=== PATIENT | female | born 1955 | race Caucasian/White ===

== ENCOUNTER → 2017-01-08 | Outpatient (CLI) | payer BC ==
[2017-01-08 13:16] LABS: BASO % 1.1 %; BASO ABS # 0.07 K/uL (0-0.2); COMPLETE YES; EOS % 6.2 %; HEMATOCRIT 40.5 % (37-47); LYMPH % 23.8 %; LYMPH ABS # 1.49 K/uL (1.2-3.4); MEAN CELL VOLUME 87.5 fL (80-100); MEAN CORPUSCULAR HEMOGLOBIN 29.4 pg (25-34); MEAN CORPUSCULAR HGB CONC 33.6 g/dl (32-36); MEAN PLATELET VOLUME 10.9 fL (7.4-10.4); MONO % 8.9 %; PLATELET COUNT 209 K/uL (130-400); RED BLOOD COUNT 4.63 M/uL (4.2-5.4); WHITE BLOOD COUNT 6.27 K/uL (4.8-10.8)
[2017-01-08 13:44] LABS: ALB/GLOB RATIO 1.1 (0.9-2); ALT/SGPT 61 U/L (12-78); AST/SGOT 28 U/L (15-37); BLOOD UREA NITROGEN 15 mg/dl (7-18); CALCIUM 8.8 mg/dl (8.5-10.1); CARBON DIOXIDE 29 mmol/L (21-32); CHLORIDE 107 mmol/L (98-107); CHOLESTEROL 122 mg/dl (0-200); CREATININE 0.76 mg/dl (0.60-1.20); GLUCOSE 93 mg/dl (70-99); POTASSIUM 3.7 mmol/L (3.5-5.1); SODIUM 143 mmol/L (136-145); TRIGLYCERIDES 67 mg/dl (0-150); VERY LOW DENSITY LIPOPROT CALC 13 mg/dl
[2017-01-08 13:52] LABS: ALKALINE PHOSPHATASE 93 U/L (45-117); CHOLESTEROL/HDL RATIO 3.1; HDL CHOLESTEROL 39 mg/dl; LDL CHOLESTEROL CALCULATED 70 mg/dl
== END | disposition home or self-care (01) ==
LOC: C.LABMFLN 08:15
PROVIDERS: ATTEND Physician Assistant
DX: Z00.00 Encounter for general adult medical examination without abnormal findings (principal); E78.5 Hyperlipidemia, unspecified

== ENCOUNTER → 2017-02-19 | Outpatient (CLI) | payer BC | END | disposition home or self-care (01) | LOC: C.LABMFLN 18:02 | PROVIDERS: ATTEND Physician Assistant | DX: E03.9 Hypothyroidism, unspecified (principal) ==

== ENCOUNTER → 2017-04-02 | Outpatient (CLI) | payer BC | END | disposition home or self-care (01) | LOC: C.LABMFLN 08:18 | PROVIDERS: ATTEND Physician Assistant | DX: E03.9 Hypothyroidism, unspecified (principal) ==

== ENCOUNTER → 2018-01-07 | Outpatient (CLI) | payer BC ==
[2018-01-07 17:50] LABS: BASO % 1.3 %; BASO ABS # 0.08 K/uL (0-0.2); EOS % 5.7 %; EOS ABS # 0.34 K/uL (0-0.5); HEMATOCRIT 41.5 % (37-47); HEMOGLOBIN 13.9 g/dL (12.0-16.0); IG# 0.01 K/uL (0.00-0.02); LYMPH % 22.4 %; LYMPH ABS # 1.33 K/uL (1.2-3.4); MEAN CELL VOLUME 87.7 fL (80-100); MEAN CORPUSCULAR HEMOGLOBIN 29.4 pg (25-34); MEAN CORPUSCULAR HGB CONC 33.5 g/dl (32-36); MEAN PLATELET VOLUME 11.1 fL (7.4-10.4); MONO % 8.1 %; MONO ABS # 0.48 K/uL (0.11-0.59); NEUT % 62.3 %; NEUT ABS # 3.71 K/uL (1.4-6.5); PLATELET COUNT 223 K/uL (130-400); RED CELL DISTRIBUTION WIDTH CV 14.1 % (11.5-14.5); RED CELL DISTRIBUTION WIDTH SD 45.6 fL (36.4-46.3); WHITE BLOOD COUNT 5.95 K/uL (4.8-10.8)
[2018-01-07 18:04] LABS: ALBUMIN 3.7 gm/dl (3.4-5.0); ALT/SGPT 28 U/L (12-78); BLOOD UREA NITROGEN 10 mg/dl (7-18); CALCIUM 8.7 mg/dl (8.5-10.1); CARBON DIOXIDE 26 mmol/L (21-32); CREATININE 0.76 mg/dl (0.60-1.20); GLUCOSE 108 mg/dl (70-99); SODIUM 139 mmol/L (136-145)
[2018-01-07 18:15] LABS: ALKALINE PHOSPHATASE 110 U/L (45-117); AST/SGOT 16 U/L (15-37); CHOLESTEROL 132 mg/dl (0-200); LDL CHOLESTEROL CALCULATED 74 mg/dl; TOTAL PROTEIN 7.3 gm/dl (6.4-8.2)
== END | disposition home or self-care (01) ==
LOC: C.LABMFLN 11:43
PROVIDERS: ATTEND Physician Assistant
DX: E78.5 Hyperlipidemia, unspecified (principal); E03.9 Hypothyroidism, unspecified; M17.0 Bilateral primary osteoarthritis of knee

== ENCOUNTER 2021-03-28 07:29 | Observation (INO) ==
--- NOTE | 2021-02-25 16:24 | PAT Medication Instructions ---
Medication Instructions Date of Service February 25, 2021 Home Medications Medication Instructions Recorded levothyroxine 50 mcg tablet See Rx Instructions .ROUTE 09/08/20 .COMPLEX #90 tablet celecoxib 100 mg capsule See Rx Instructions .ROUTE 10/14/20 .COMPLEX #90 cap metformin 500 mg tablet,extended 500 mg PO BID #180 tab 02/02/21 release 24hr fluticasone fur. 100 mcg-umeclid 62.5 mcg-vilant (Trelegy Ellipta) 25 mcg inhalat.powder 1 inh INH QAM fluticasone propionate 50 mcg/actuation nasal spray,suspension 1 spray INTNAS DAILY PRN multivitamin 1 tab PO QAM levothyroxine 50 mcg tablet 1 tab PO once daily celecoxib 100 mg capsule See Rx Instructions .ROUTE .COMPLEX metformin 500 mg tablet,extended release 24hr 500 mg PO BID atorvastatin 40 mg PO HS loratadine [Claritin] 10 mg PO HS ASK your surgeon for instructions celecoxib 100 mg capsule See Rx Instructions .ROUTE .COMPLEX DO NOT take the morning of surgery multivitamin 1 tab PO QAM metformin 500 mg tablet,extended release 24hr 500 mg PO BID Take morning of surgery With a small sip of water, OTHERWISE NOTHING TO EAT OR DRINK AFTER MIDNIGHT: fluticasone fur. 100 mcg-umeclid 62.5 mcg-vilant (Trelegy Ellipta) 25 mcg inhalat.powder 1 inh INH QAM fluticasone propionate 50 mcg/actuation nasal spray,suspension 1 spray INTNAS DAILY PRN (if needed) levothyroxine 50 mcg tablet 1 tab PO once daily Take evening before surgery fluticasone propionate 50 mcg/actuation nasal spray,suspension 1 spray INTNAS DAILY PRN (if needed) multivitamin 1 tab PO QAM metformin 500 mg tablet,extended release 24hr 500 mg PO BID atorvastatin 40 mg PO HS loratadine [Claritin] 10 mg PO HS Other Notes If you have any questions please call us at [phone] or [phone] or [phone] or [phone]
--- NOTE | 2021-03-01 11:28 | Anesthesiology Consultation ---
Date of Service March 01, 2021 Assessment & Plan (1) Encounter for pre-operative examination: Chart Review Chart Review: Acceptable Risk for Surgery and Patient NOT seen in Pre Admission Testing - Check BSG AM DOS Per PAT appt on 03/01/21, pt resides and works in [place]. 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 Wears mask, uses good hand hygiene and socially distances. Travels to [facility] for medical appts. No known Covid positive contacts or Covid related symptoms. No known Covid testing the past 90 days. Preop Covid testing scheduled 03/24/21= will await results. Educated on importance of self quarantining, social distancing and wearing mask in public both for the patient and household contacts .Pt fully vaccinated Teaching & Discussion Pre-Anesthesia Teaching/Discussion Notes: Instructed NPO after midnight before surgery,except medications with 15 cc of water. Medication instructions provided according to the [facility] guidelines. History Surgery Operation Date: 03/28/21 10:00 Proposed Procedures p Left Total Knee Arthroplasty - Denilson Berrios MD Height/Weight Height: 5 ft 3 in Weight: 77.4 kg Allergies Allergy/AdvReac Type Severity Reaction Status Date / Time Penicillins Allergy Severe Angioedema Verified 02/24/21 10:53 Medications Home Medications Medication Instructions Recorded Confirmed Last Taken fluticasone fur. 100 mcg-umeclid 1 inh INH QAM 01/07/20 02/24/21 Unknown 62.5 mcg-vilant 25 mcg inhalat.powder fluticasone propionate 50 1 spray INTNAS DAILY PRN 01/07/20 02/24/21 Unknown mcg/actuation nasal spray,suspension multivitamin 1 tab PO QAM 01/07/20 02/24/21 Unknown levothyroxine 50 mcg tablet See Rx Instructions .ROUTE 09/08/20 02/24/21 Unknown .COMPLEX #90 tablet celecoxib 100 mg capsule See Rx Instructions .ROUTE 10/14/20 02/24/21 Unknown .COMPLEX #90 cap metformin 500 mg tablet,extended 500 mg PO BID #180 tab 02/02/21 02/24/21 Unknown release 24hr atorvastatin 40 mg PO HS 02/24/21 02/24/21 Unknown loratadine [Claritin] 10 mg PO HS 02/24/21 02/24/21 Unknown Past Medical History Medical History Asthma Breathing well controlled and stable Diabetes mellitus type 2, controlled Glucose stable - newly diagnosed. Hyperlipidemia Hypothyroidism Macular degeneration More than 50 percent stenosis of left internal carotid artery Follows with Dr Castellanos- last seen 05/04/20- carotid artery stenosis has been stable for the last 3-4 years- recommend two year follow up Tobacco use disorder Exercise / Class Metabolic Activity II 4-5 Yardwork/Stairs/Walk up hill (one flight of stairs - no chest pain or SOB ) Past Family History Family History Mother Clotting disorder Factor V Leiden; prothrombin gene mutation Heart disease Hypertension Sister Breast cancer Father Stroke Brother Family history of diabetes mellitus Denies family history of Ovarian cancer Prostate cancer Myocardial infarction Colorectal cancer Past Surgical History Surgical History History of colonoscopy History of hysterectomy TOTAL WITH BLADDER TACK Past Anesthesia History No Hx of Anesthesia Complications and No Family Hx of Anesthesia Complications History of PONV No Hx of PONV and No Hx of Motion Sickness Social History Smoking Status: Current every day smoker Smoking cigarettes per day: 15 CIGS A DAY Do You Dip or Chew Tobacco: No Hx Alcohol Use: No Hx Substance Use: No Review of Systems Patient denies chest pain, shortness of breath, dyspnea on exertion, reflux, cough, wheezing, palpitations. No hx of seizures, stroke, SD, apnea/snoring. No hx of blood clots or blood transfusions Physical Exam Vital Signs VITALS BP 121/77 P 72 TEMP 97.8 SP02 95% RESP 16 Constitutional no acute distress ENMT Mouth: no TMJ clicking Thyromental Distance: > or= 3.5 Finger Breadths (3.5) Mallampati Class: I Full denture upper denture Missing molars/side teeth on the bottom Neck neck extension not limited Respiratory normal respiratory effort; no respiratory distress Auscultation: lungs clear to auscultation bilaterally; no wheezes Cardiovascular Rate/Rhythm: regular rate and regular rhythm Heart Sounds: no murmur Vessels: no carotid bruit (no significant carotid bruit noted ) Musculoskeletal Spine: no pain with cervical ROM Extremities: extremities normal to inspection Psychiatric Orientation: alert Lab Results Anesthesia Preop Results Results Anesthesia Widget: WBC 6.79 K/uL (4.8-10.8) 03/01/21 Hgb 13.1 g/dL (12.0-16.0) 03/01/21 Hct 39.3 % (37-47) 03/01/21 Plt 223 K/uL (130-400) 03/01/21 Na 140 mmol/L (136-145) 03/01/21 K 4.0 mmol/L (3.5-5.1) 03/01/21 Cl 108 mmol/L (98-107) H 03/01/21 CO2 26 mmol/L (21-32) 03/01/21 BUN 15 mg/dl (7-18) 03/01/21 Creat 0.63 mg/dl (0.6-1.2) 03/01/21 Glucose Level 84 mg/dl (70-99) 03/01/21 PT 9.5 Seconds (9.0-12.0) 03/01/21 PTT 27.4 Seconds (21.0-31.0) 03/01/21 INR 0.9 (0.9-1.1) 03/01/21 HA1c 6.6 % (4.5-5.6) H 03/01/21 Urine Color Dark Yellow 03/01/21 Urine Appearance Clear (Clear) 03/01/21 Urine pH 5.0 (4.5-7.5) 03/01/21 Urine Specific Mozelle 1.022 (1.000-1.030) 03/01/21 Urine Protein Negative (Negative) 03/01/21 Urine Glucose (UA) Negative (Negative) 03/01/21 Urine Ketones Trace (Negative) H 03/01/21 Urine Blood Negative (Negative) 03/01/21 Urine Nitrite Negative (Negative) 03/01/21 Urine Bilirubin Negative (Negative) 03/01/21 Urine Urobilinogen Negative (Negative) 03/01/21 Urine Leukocyte Esterase Negative (Negative) 03/01/21 Blood Type A Positive 03/01/21 Antibody Screen NEGATIVE 03/01/21 Testing Electrocardiogram Date: 03/01/21 Findings: + NSR @ (67bpm ) Normal EKG per cardio. Chest X-Ray Date: 03/01/21 Findings: + NAD The cardiomediastinal silhouette is unremarkable noting atherosclerotic calcification of the thoracic aorta. Emphysematous change is suggested and chronic interstitial thickening is similar to previous. There is mild bibasilar scarring/atelectasis. No airspace consolidation or pleural effusion is identified. There is no pneumothorax. Other Testing Cerebrovascular Duplex 04/05/20= No hemodynamically significant stenosis in the right ICA. 60-69% in the left ICA. Normal, antegrade flow in the right vertebral artery. <50% stenosis of the proximal right subclavian artery. >50% stenosis of the proximal left subclavian artery with pre-steal waveform noted in the left vertebral artery. Oscillating, antegrade flow in the left vertebral artery. >50% stenosis of the bilateral ECAs.
--- NOTE | 2021-03-27 15:27 | History & Physical Report ---
Date of Service March 27, 2021 Assessment & Plan (1) Primary osteoarthritis of left knee: Treatment options discussed with patient. She has severe endstage OA bilaterally. She has failed conservative management as above. She would like to proceed with left total knee arthroplasty. Risks, benefits and alternatives to surgery including but not limited to infection, DVT, pain, stiffness, need for revision surgery, damage to blood vessels, damage to nerves, PE, , were discussed with the patient and they wish to proceed. Surgery scheduled for [facility] on 03/28/[address] Berrios. Plan on ASA 81mg BID x 1 mo post op for DVT prophylaxis, OPPT post discharge. All questions answered. F/u post op. History of Present Illness Chief Complaint: Left knee pain Primary Care Provider: Ivanna Sharif PA-C 65 year old female with PMHx significant for carotid stenosis, high cholesterol, hypothyroid, DM2, asthma presents with ongoing left knee pain. Pain interfering with her ability to carry out daily activiteis. She has failed conservative measures including NSAIDs, Tylenol, home exercises, knee sleeve. She has severe endstage osteoarthritis. She would like to proced with surgical intervention. Patient denies headaches, sweats, fevers, chills, double vision, blurred vision, cough, sore throat, dysphagia, chest pain, sob, wheezing, n/v/d/c, numbness, tingling, fatigue, urinary symptoms, mood disorders. ROS positive for left knee pain and stiffness. Allergies Allergy/AdvReac Type Severity Reaction Status Date / Time Penicillins Allergy Severe Angioedema Verified 03/09/21 07:54 Home Medications Medication Instructions Recorded Confirmed Type fluticasone fur. 100 mcg-umeclid 1 inh INH QAM 01/07/20 03/09/21 History 62.5 mcg-vilant 25 mcg inhalat.powder fluticasone propionate 50 1 spray INTNAS DAILY PRN 01/07/20 03/09/21 History mcg/actuation nasal spray,suspension multivitamin 1 tab PO QAM 01/07/20 03/09/21 History celecoxib 100 mg capsule See Rx Instructions .ROUTE 10/14/20 03/09/21 Rx .COMPLEX #90 cap metformin 500 mg tablet,extended 500 mg PO BID #180 tab 02/02/21 03/09/21 Rx release 24hr atorvastatin 40 mg PO HS 02/24/21 03/09/21 History loratadine [Claritin] 10 mg PO HS 02/24/21 03/09/21 History levothyroxine 50 mcg tablet See Rx Instructions .ROUTE 03/03/21 03/09/21 Rx .COMPLEX #90 tablet Past Med/Surg History Medical History Asthma Breathing well controlled and stable Diabetes mellitus type 2, controlled Glucose stable - newly diagnosed. Hyperlipidemia Hypothyroidism Macular degeneration More than 50 percent stenosis of left internal carotid artery Follows with Dr Castellanos- last seen 05/04/20- carotid artery stenosis has been stable for the last 3-4 years- recommend two year follow up Tobacco use disorder Surgical History History of colonoscopy History of hysterectomy TOTAL WITH BLADDER TACK Family History Mother Clotting disorder Factor V Leiden; prothrombin gene mutation Heart disease Hypertension Sister Breast cancer Father Stroke Brother Family history of diabetes mellitus Denies family history of Ovarian cancer Prostate cancer Myocardial infarction Colorectal cancer Social History (Updated 02/24/21 @ 11:13 by Fanny Kuhn RN) Smoking Status: Current every day smoker Cigarettes Per Day: 15 CIGS A DAY; Second Hand Exposure: Yes (FATHER SMOKED); Hx Alcohol Use: No Hx Substance Use: No Preferred Language: Kazakh Communication Ability: Effective Visual Impairment: No Limitations Hearing Ability: Normal Seed Sales Manager Required: No Beliefs That Will Affect Care: None marital status: Current Living Situation: Spouse current occupational status: employed and retired current occupation: [employer] How many Children do You have: 0 Feels Safe at Home: Yes Childhood Exposure to Second-Hand Smoke: Yes caffeine: Yes during the past year weight has: remained stable Dental Care, Regularly: Yes Physical Activity Frequency: 5-6 Times per Week Seatbelt Use: always Sunscreen Use: Yes Assistive Devices: Denture - Upper and Glasses Review of Systems All systems reviewed & are unremarkable except as noted in HPI & below Physical Exam Constitutional: well developed and well nourished; no acute distress Eyes: PERRL, conjunctivae normal, anicteric sclerae ENMT: external ear and nose normal, oropharynx normal Neck: trachea midline, no thyromegaly Respiratory: normal respiratory effort, lungs clear to auscultation Cardiovascular: RRR, no murmur, no edema Musculoskeletal: Left knee: ROM 15-80 degrees, crepitation. Varus alignment. Medial joint line tenderness. Negative valgus and varus stress. Skin: no rashes, warm and dry Neurologic: patellar DTR's 2+ bilat, sensation intact Psychiatric: A+Ox3, euthymic affect Results & Data ([place]) Diagnostic Findings Left knee: Severe endstage osteoarthritis, varus alignment with bone on bone medial compartment. Periarticular osteophyte formation and subchondral sclerosis.
[~2021-03-28 07:29] MED LIST: ACETAMINOPHEN 500 MG TAB PO SCH; BUPIVACAINE 0.5 % 5 MG/1 ML PF 10ML VIAL ONE; CeleBREX 200 MG CAP PO SCH; EPINEPHrine INJ 1 MG/ML AMP ONE; FAMOTIDINE 20 MG TAB PO SCH; GABAPENTIN 600 MG DOSE PO SCH; LR 500ML BOLUS, THEN 15ML/HR IV SCH; METOCLOPRAMIDE HCL 10 MG TABLET PO SCH; ROPIVACAINE 0.5% 5 MG/ML 30 ML VIAL ONE; TRANEXAMIC ACID 1,000 MG **IV Intra-op IV SCH; TRANEXAMIC ACID 1,000 MG **IV Pre-op IV SCH; VANCOMYCIN HCL 1,250 MG in SODIUM CHLORIDE 0.9% 250 ML IV SCH
[2021-03-28] MEDS ORDERED: MIDAZOLAM HCL 1 MG/ML 2ML VIAL ONE ×2 (08:31)
[2021-03-28] MEDS ORDERED: fentaNYL citrate 100 MCG/2 ML VIAL ONE (08:31)
--- NOTE | 2021-03-28 09:40 | History & Physical Bridge Note ---
Date of Service March 28, 2021 History & Physical Bridge Note I have examined the patient, reviewed the History & Physical and in the interval since the performance of the History & Physical I have noted the following changes of clinical significance: no changes noted
[2021-03-28] MEDS ORDERED: ORTHO JOINT ANESTHETIC ONE (09:47)
[2021-03-28] MEDS: ROPIVACAINE 0.5% HCL/PF 150 MG, BUPIVACAINE 0.75% MPF 20 ML, EPINEPHrine 30MG/30ML (OR ... INSTIL SCH (10:48)
[2021-03-28] MEDS ORDERED: ATROPINE SULFATE 0.1 MG/ML 10ML SYR IV PRN (11:03)
[2021-03-28] MEDS ORDERED: ePHEDrine sulfate 50 MG/ML AMP IV PRN (11:03)
[2021-03-28] MEDS ORDERED: LIDOCAINE 2% 2 ML VIAL/AMP(20MG/ML) INFIL ONE (11:06)
[2021-03-28] MEDS ORDERED: PROPOFOL IV EMULSION 10 MG/ML 20 ML VIAL IV ONE (11:06)
--- NOTE | 2021-03-28 12:55 | Post Operative Brief Note ---
Immediate Post Op Note v1 Date of Surgery March 28, 2021 Pre & Post Diagnosis Operation Date: 03/28/21 09:50 Pre-Op Diagnosis: Osteoarthritis, Left Knee Post-Op Diagnosis: Osteoarthritis, Left Knee I identified the patient and participated in the time-out.: Yes Procedure Operation Date: 03/28/21 09:50 Actual Procedures p Left Total Knee Arthroplasty(Left), application superficial wound VAC- Denilson Berrios MD Surgeon Denilson Berrios MD Dehydrogenation Converter Operator Nazario MURILLO Estimated Blood Loss 5 Findings Consistent with Post-Op Diagnosis Specimens Bone cuts Drains Hemovac Drain Anesthesia Type MAC Spinal Regional Complications none Disposition Accompanied Patient To Recovery: No Disposition: Recovery Room Overlapping Procedure I was immediately available: during the entire case.
--- NOTE | 2021-03-28 13:18 | Operative Report ---
Post Operative Report Pre & Post Diagnosis Operation Date: 03/28/21 09:50 Pre-Op Diagnosis: Osteoarthritis, Left Knee Post-Op Diagnosis: Osteoarthritis, Left Knee I identified the patient and participated in the time-out.: Yes Procedure Operation Date: 03/28/21 09:50 Actual Procedures p Left Total Knee Arthroplasty(Left), superficial wound VAC- Denilson Berrios MD Surgeon Denilson Berrios MD Inventory Coordinator Nazario MURILLO Estimated Blood Loss 5 Findings Consistent with Post-Op Diagnosis Specimens Bone cuts Drains 2 Hemovac Anesthesia Type MAC Spinal Regional Disposition Accompanied Patient To Recovery: No Disposition: Recovery Room Indications 65 female with very severe bilateral knee osteoarthritis with tricompartmental DJD and bone loss medial compartment bilaterally Description of Procedure Patient taken to the operating room the size under spinal MAC regional anesthesia. Patient was placed supine on the operating table. A pneumatic tourniquet was placed about the moderately obese left upper thigh. The left lower extremity was prepped and draped in sterile fashion. Knee exam demonstrated range of motion 20 through 85 degrees. Stiff knee with no pseudolaxity. The leg was elevated exsanguinated with an Esmarch bandage and pneumatic tourniquet was raised to 325 millimeters of mercury. Skin incised sharply in longitudinal fashion. Subcutaneous flaps elevated. Incision was made through the medial retinaculum extending up in the mid third of the quadriceps tendon and down to the medial tibial tubercle. Intra-articular findings demonstrated severe tricompartmental DJD. [id number] medial and lateral compartment. Complete notch stenosis with absent ACL and bilateral meniscus tears tricompartment osteoarthritis with large osteophytes. Also large posterior femoral condylar osteophytes medial greater than lateral. The EQUIP Advantage triathlon total knee arthroplasty system was used. To expose the knee the infrapatellar fat pad was resected. The meniscal remnants and posterior cruciate ligament was resected. Multiple osteophytes were resected. The anterior fat pad over the femur in the area of the anterior flange of the femoral component was resected. Lateral synovial bands release. The femur was exposed. An intramedullary drill hole was made into the canal. A guide mauricio was placed. Distal femoral cutting guide was adjusted to resect a 5 degree valgus cut with 10 millimeters distal femur resected. The knee was extended and a subperiosteal peel lateral release was performed around the patella. Patella width was measured and width was reproduced using a freehand cut technique and a 31 x 9mm symmetrical patella component. The 3 drill holes were made and the excess lateral facet was beveled off to prevent any impingement. Attention was taken back to the femur which was exposed with retractors and the femoral sizing guide was pinned in position. The drill holes were placed in 3 of external rotation to match epicondylar axis. Femur sized for a 5 posterior stabilized component. The 4-in-1 cutting block was placed and then the anterior posterior and chamfer cuts are made. The tibia was then subluxed. The external tibial cutting guide was just to make a perpendicular cut to the long axis of the tibia below the most deficient bone loss side. A lamina cat driver was used and the flexion extension gaps were balanced. All posterior osteophytes removed. All meniscal remnants were resected. The tibia exposed and the trial tibial component size 4 was externally rotated in line with the tibial tubercle and pinned in position. The drill and punch for stem was used. The notch cutting device was centered appropriately and the femoral notch cut was made. The femoral trial was inserted. Trial tibial inserts were placed and size 13 posterior stabilized gave balanced ligaments through flexion and extension. Patella tracking was assessed. The patella tracked centrally. The trial components were then removed and the orthomix anesthetic cocktail was injected per protocol. The knee was then copiously irrigated with pulsatile lavage saline solution. Final components were then cemented with Simplex cement. Final components were size 5 left posterior stabilized Kristian triathlon femoral component, size 4 universal tibial baseplate, size 4 x 13 mm thick X3 po lyethylene tibial bearing insert, S 31 x 9 X3 patella. While the cement cured the Betadine soak was used per protocol. After cement cured further pulsatile lavage irrigation performed and 2 Hemovac drains were brought out laterally. The quadriceps tendon and medial retinaculum were closed with figure of 8 #1 Vicryl sutures. The knee was taken through full range of motion and the repair was secure. I was able to achieve 0 through 130 degrees range of motion. The subcutaneous tissues were closed with 2-0 Vicryl sutures. Skin was closed with carmine. Superficial wound VAC was applied. Patient procedure well. Nazario MURILLO was my physician assistant merchandise manager who assisted in patient positioning prepping and draping,leg positioning ,soft tissue retraction and instrument management and participated in the closing applied to superficial wound VAC and will participate in postoperative care of the patient. The patient tolerated the procedure well. I attest to the content of the Intraoperative Record and any orders documented therein. Any exceptions are noted below.
--- NOTE | 2021-03-28 13:19 | Anesthesiology Progress Note ---
Date of Service March 28, 2021 Anesthesia Post Procedure Vital Signs Vital Signs: Temp Pulse Pulse Resp BP Pulse Ox 03/28/21 13:10 71 16 160/77 H 94 03/28/21 13:00 65 16 124/74 95 03/28/21 12:50 36.4 C L 67 16 120/64 98 03/28/21 08:41 36.9 C 68 18 137/62 96 Transfer of Care Handoff Completed per policy Notes Mental Status: alert / awake / arousable Patient Amnestic to Procedure: Yes Nausea / Vomiting: adequately controlled Pain: adequately controlled Airway Patency, RR, SpO2: stable & adequate BP & HR: stable & adequate Hydration State: stable & adequate Neuraxial Anesthesia: was administered and sensory block is resolving Anesthetic Complications: no major complications apparent
--- NOTE | 2021-03-28 13:24 | XRay Report ---
XR knee LT 1 or 2V routine CLINICAL HISTORY: Surgical Post Op COMPARISON: None. DISCUSSION: There are postsurgical changes of a total left knee arthroplasty and patellar resurfacing . The femoral tibial components appear well seated. There are overlying skin carmine and surgical mannie ins. There is gas within soft tissues consistent with recent surgery IMPRESSION: Postsurgical changes of a total left knee arthroplasty. ACT 112: Negative or not required by law. Electronically signed by: Prakash Eason M.D. 03/28/2021 1:22 PM
[2021-03-28] MEDS ORDERED: MAGNESIUM HYDROXIDE SUSP 30 ML UDC PO PRN (16:54)
[2021-03-28] MEDS ORDERED: HYDROmorphone INJ 0.5 MG/0.5 ML SYR IV PRN (16:54)
[2021-03-28] MEDS ORDERED: NALOXONE HCL 0.4 MG/1 ML VIAL/CARP IV PRN (16:54)
[2021-03-28] MEDS ORDERED: bisacodyL 10 MG SUPP PR PRN (16:54)
[2021-03-28] MEDS ORDERED: METOCLOPRAMIDE HCL INJ 5 MG/ML 2 ML VIAL IV PRN (16:54)
[2021-03-28] MEDS ORDERED: SODIUM CHLORIDE 0.9% 1000ML 1,000 ML IV SCH (16:54)
[2021-03-28] MEDS ORDERED: VANCOMYCIN CONSULT ACTIVE PRN (16:54)
[2021-03-28] MEDS ORDERED: ONDANSETRON INJ 2 MG/ML 2 ML VIAL IV PRN (16:54)
[2021-03-28] MEDS ORDERED: FLUTICASONE PROPIONATE NA SPR 16 GM BTL PRN (16:54)
[2021-03-28] MEDS ORDERED: PHARMACY GLYCEMIC MGMT CONSULT PRN (17:09)
[2021-03-28] MEDS: oxyCODONE HCL IR 5 MG TAB (IMMEDIATE RELEASE) PO PRN ×2 (17:15→21:25)
--- NOTE | 2021-03-28 17:20 | Pharmacy Report ---
Pharmacy Glycemic Short Note 2 - Date of Service March 28, 2021 - Glycemic Short BSG Results (Last 24 hours): 03/28/21 03/28/21 08:02 12:54 POC Glucose 124 H 104 H OUTPATIENT ANTIDIABETIC REGIMEN: * Metformin XR 500 mg PO BIDM * HbA1c = 6.6% (03/01/21) ASSESSMENT: * Latia is a 65 yo F admitted POD #0 s/p left total knee arthroplasty. She was diagnosed with T2DM within the last year and her HbA1c's have been well controlled on Metformin monotherapy and dietary changes. Pharmacy has been consulted postoperatively to assist with inpatient glycemic management. * Preoperative BSG was 124 mg/dL this morning. Immediate postoperative BSG was 104 mg/dL. * Does not appear that patient received any perioperative steroids. * Pt is maintained on oral antidiabetic agents as an outpatient. Oral agents are not recommended for inpatient use d/t drug interactions, changing PO intake, and difficulty titrating for acute hyper/hypoglycemia. Will hold oral agents for admission and utilize SQ basal bolus insulin regimen which is the recommended regimen for inpatient glycemic control. * Pending renal function tomorrow morning as well as tolerating a diet, may be able to start Metformin tomorrow morning. * Will initiate weight based insulin dosing for insulin shani patient and titrate based on BSG trends. * ADA & AACE recommend a goal blood sugar range 140-180 mg/dl for the majority of critically ill & non-critically ill patients. However, more stringent targets may be selected in individual cases. Will utilize more stringent goal of 110-140 mg/dl based on patient age & comorbidities. Additionally, tighter glycemic control is warranted to help prevent postoperative infections. PLAN FOR INPATIENT GLYCEMIC CONTROL: * Hold outpatient oral diabetes medications * Basal insulin * None * Bolus insulin * NovoLog per scale ACHS or Q6hrs while NPO * Goal Range: Low 110 mg/dL - High 140 mg/dL * Correction Factor: 30 mg/dL/unit * Nutritional / Prandial insulin per carb ratio of 1 unit per 10 grams CHO consumed PLAN FOR DISCHARGE: * HbA1c is at goal given this patient's age and comorbidities. Continue Metformin upon patient discharge.
[2021-03-28] MEDS ORDERED: CARBOHYDRATES FOR HYPOGLYCEMIA PO PRN (17:30)
[2021-03-28] MEDS ORDERED: DEXTROSE 50% 50 ML SYRINGE IV PRN (17:30)
[2021-03-28] MEDS ORDERED: GLUCAGON FOR INJ 1 MG VIAL IM PRN (17:30)
[2021-03-28] MEDS ORDERED: GLUCOSE 40% GEL 15 GM TUBE PO PRN (17:30)
[2021-03-28] MEDS ORDERED: GLUCOSE 10 TABS/TUBE PO PRN (17:30)
[2021-03-28] MEDS: ACETAMINOPHEN 500 MG TAB PO SCH ×2 (18:17→22:33)
[2021-03-28] MEDS: INSULIN ASPART 100 UNITS/ML 3 ML PEN SC SCH ×2 (18:19→21:48)
--- NOTE | 2021-03-28 18:19 | Hospitalist Consultation ---
Date of Consultation March 28, 2021 Assessment & Plan (1) Primary osteoarthritis of left knee: 65 yo F w/ pMHx. of DMII on metformin, hypothyroidism, carotid stenosis, COPD, and left knee pain now s/p total left knee arthroplasty; Dr. Berrios with orthopedics consulted for post op management of the patient. Left knee arthroplasty - management per orthopedics - received Vancomycin preoperatively - pain well controlled on current pain regimen - scheduled Tylenol, Celebrex, - prn Oxycodone, and Dilaudid - fluids stopped as she is taking good PO intake - CBC ordered for AM labs DM II, on Metformin as an outpatient most recent A1c was 6.6 on 03/01 - stopped Metformin on admission - SSI insulin while inpatient COPD, stable - continue home Trelogy, Ellipta - IS device next to patient, instructed on using this during each commercial Tobacco use disorder 30 pack year history, currently 1 pack per day - planning stage of quitting - discussed nicotine replacement, patient deferred at this time Hypothyroidism - continue home levothyroxine High cholesterol - continue Atorvastatin Code: full Diet: CC DM II DVT: per orthopedics Supervising Physician Co-Signing Physician Notes Reviewed documentation, case discussed with resident. Agree with his note above. Patient was here for elective left knee arthroplasty with Dr. Berrios. He consulted our service for medical management. Patient has a history of COPD and type 2 diabetes with hypothyroidism hypercholesterolemia. Patient is otherwise stable, continue monitor while she remains here as an inpatient. Thank you for the consult. History of Present Illness Reason for Consultation: post-op management Requesting Physician: Dr. Berrios Attending Physician: Denilson Berrios MD History of Present Illness Latia Dangelo is a 65-year-old female who has been admitted for surgical management of her left knee OA. She has a history of DM II, COPD, high cholesterol, carotid artery stenosis and left knee pain 2/2 OA now s/p total left knee arthroplasty. She has an allergy to Penicillin and was given Vancomycin per-operatively. Her pain is currently 4-5/10 in the left knee, she just had pain medication and feels that the pain is well controlled. She had just come up to the floor one hour prior. She was diagnosed with diabetes in December on screening labs at her primary physician and was started on Metformin 500 BID. She has a history COPD per patient and is on Trelogy Ellipta with a 30 pack year history of smoking currently 1 pack per day. She is interested in quitting and will be talking to her primary about this. We discussed using a nicotine patch while in the hospital and she declined at this time. Allergies Allergy/AdvReac Type Severity Reaction Status Date / Time Penicillins Allergy Severe Angioedema Verified 03/09/21 07:54 Home Medications Medication Instructions Recorded Confirmed Type fluticasone fur. 100 mcg-umeclid 1 inh INH QAM 01/07/20 03/09/21 History 62.5 mcg-vilant 25 mcg inhalat.powder fluticasone propionate 50 1 spray INTNAS DAILY PRN 01/07/20 03/09/21 History mcg/actuation nasal spray,suspension multivitamin 1 tab PO QAM 01/07/20 03/09/21 History celecoxib 100 mg capsule See Rx Instructions .ROUTE 10/14/20 03/09/21 Rx .COMPLEX #90 cap metformin 500 mg tablet,extended 500 mg PO BID #180 tab 02/02/21 03/09/21 Rx release 24hr atorvastatin 40 mg PO HS 02/24/21 03/09/21 History loratadine [Claritin] 10 mg PO HS 02/24/21 03/09/21 History levothyroxine 50 mcg tablet See Rx Instructions .ROUTE 03/03/21 03/09/21 Rx .COMPLEX #90 tablet Patient History Medical History Asthma Breathing well controlled and stable Diabetes mellitus type 2, controlled Glucose stable - newly diagnosed. Hyperlipidemia Hypothyroidism Macular degeneration More than 50 percent stenosis of left internal carotid artery Follows with Dr Castellanos- last seen 05/04/20- carotid artery stenosis has been stable for the last 3-4 years- recommend two year follow up Tobacco use disorder Surgical History History of colonoscopy History of hysterectomy TOTAL WITH BLADDER TACK Family History Mother Clotting disorder Factor V Leiden; prothrombin gene mutation Heart disease Hypertension Sister Breast cancer Father Stroke Brother Family history of diabetes mellitus Denies family history of Ovarian cancer Prostate cancer Myocardial infarction Colorectal cancer Social History Smoking Status: Current every day smoker Cigarettes Per Day: 15 CIGS A DAY; Second Hand Exposure: Yes (FATHER SMOKED); Do You Dip or Chew Tobacco: No; Hx Alcohol Use: No Hx Substance Use: No Preferred Language: German Communication Ability: Effective Visual Impairment: No Limitations Hearing Ability: Normal [place] Required: No Beliefs That Will Affect Care: None marital status: Current Living Situation: Spouse current occupational status: employed and retired current occupation: FIELD UND[employer] How many Children do You have: 0 Other Information That Helps Us Care for You: No Feels Safe at Home: Yes Childhood Exposure to Second-Hand Smoke: Yes caffeine: Yes during the past year weight has: remained stable Dental Care, Regularly: Yes Physical Activity Frequency: 5-6 Times per Week Seatbelt Use: always Sunscreen Use: Yes Assistive Devices: Denture - Upper and Glasses Review of Systems Review of Systems: Constitutional: denies fevers, chills, nausea, vomiting Neuro: denies numbness, tingling Cardiac: denies chest pain, palpitations : denies dysuria, urgency admits frequency (relates to fluids) Physical Exam Constitutional: WD/WN, vitals as above Eyes: PERRL, conjunctivae normal, anicteric sclerae ENMT: external ear and nose normal, oropharynx normal Neck: normal visual inspection Respiratory: normal respiratory effort, lungs clear to auscultation (nasal canual around neck breathing comfortably) Cardiovascular: RRR, no murmur, no edema Gastrointestinal (Abdomen): normal bowel sounds, soft, nontender, no hepatosplenomegaly Musculoskeletal: Knee: + surgical drain present - left knee with ice pack and dressings and wrap - left foot with sensation to light touch intact, warm, capillary refill <2 seconds Neurologic: no focal motor deficits Speech / Cognition: normal speech Results & Data Results & Data ([facility]) Vital Signs (Past 12 Hours) Vital Signs Temp Pulse Pulse Resp BP Pulse Ox 03/28/21 16:45 37.0 C 73 18 131/76 99 03/28/21 16:15 62 16 144/79 H 98 03/28/21 16:00 68 16 128/68 98 03/28/21 15:45 36.4 C L 69 16 132/59 L 98 03/28/21 15:30 67 16 114/67 98 03/28/21 15:15 70 16 126/60 98 03/28/21 15:00 73 16 139/74 98 03/28/21 14:45 60 16 149/76 H 98 03/28/21 14:30 72 16 134/73 98 03/28/21 14:15 62 16 142/70 H 97 03/28/21 14:00 60 16 151/79 H 97 03/28/21 13:45 65 16 144/79 H 97 03/28/21 13:30 66 16 155/80 H 95 03/28/21 13:20 36.4 C L 71 16 157/83 H 94 03/28/21 13:10 71 16 160/77 H 94 03/28/21 13:00 65 16 124/74 95 03/28/21 12:50 36.4 C L 67 16 120/64 98 03/28/21 08:41 36.9 C 68 18 137/62 96 CBC Results Results Complete Blood Count Results: RBC 4.38 M/uL (4.2-5.4) 03/01/21 WBC 6.79 K/uL (4.8-10.8) 03/01/21 Hgb 13.1 g/dL (12.0-16.0) 03/01/21 Hct 39.3 % (37-47) 03/01/21 Plt Count 223 K/uL (130-400) 03/01/21 Chemistry (BMP) Results [facility] Results: Sodium 140 mmol/L (136-145) 03/01/21 Potassium 4.0 mmol/L (3.5-5.1) 03/01/21 Chloride 108 mmol/L (98-107) H 03/01/21 BUN 15 mg/dl (7-18) 03/01/21 Creatinine 0.63 mg/dl (0.6-1.2) 03/01/21 Glucose 84 mg/dl (70-99) 03/01/21 Resident Activity Tracking Resident Involvement: Resident Care Provided Care Provided: Adult Hospital Medicine
[2021-03-28] MEDS ORDERED: VANCOMYCIN HCL 1,250 MG in SODIUM CHLORIDE 0.9% 250 ML IV SCH (20:00)
[2021-03-28] MEDS: SENNA 8.6 MG TAB PO SCH (20:52)
[2021-03-28] MEDS: ASPIRIN 81 MG ECTAB PO SCH (20:52)
[2021-03-28] MEDS: LORATADINE 10 MG TAB PO SCH (20:52)
[2021-03-28] MEDS: DOCUSATE SODIUM 100 MG CAP PO SCH (20:53)
[2021-03-28] MEDS: ATORVASTATIN 40 MG TAB PO SCH (20:53)
[2021-03-28] MEDS: CeleBREX 200 MG CAP PO SCH (20:53)
[2021-03-29] MEDS: oxyCODONE HCL IR 5 MG TAB (IMMEDIATE RELEASE) PO PRN ×3 (04:35→21:01)
[2021-03-29] MEDS: ROPIVACAINE 0.5% HCL/PF 150 MG, BUPIVACAINE 0.75% MPF 20 ML, EPINEPHrine 30MG/30ML (OR ... INSTIL SCH (05:20)
[2021-03-29] MEDS: ACETAMINOPHEN 500 MG TAB PO SCH ×3 (05:42→21:02)
[2021-03-29] MEDS: LEVOTHYROXINE SODIUM 50 MCG TABLET PO SCH (05:42)
[2021-03-29 05:59] LABS: Basophils # (auto) 0.03 K/uL (0-0.2); Basophils % (auto) 0.4 %; Eosinophils # (auto) 0.27 K/uL (0-0.5); Eosinophils % (auto) 3.2 %; Hematocrit (blood only) 34.5 % (37-47); Hemoglobin 11.3 g/dL (12.0-16.0); Immature Granulocytes # (auto) 0.02 K/uL (0.00-0.02); Immature Granulocytes % (auto) 0.2 %; Lymphocytes # (auto) 0.96 K/uL (1.2-3.4); Lymphocytes % (auto) 11.5 %; Mean Corpuscular Hgb Conc 32.8 g/dL (32-36); Mean Corpuscular Volume 91.5 fL (80-100); Monocytes # (auto) 0.74 K/uL (0.11-0.59); Monocytes % (auto) 8.9 %; Neutrophils # (auto) 6.33 K/uL (1.4-6.5); Neutrophils % (auto) 75.8 %; Platelet Count 193 K/uL (130-400); RDW Coefficient of Variation 13.8 % (11.5-14.5); RDW Standard Deviation 46.5 fL (36.4-46.3); Red Blood Count 3.77 M/uL (4.2-5.4); White Blood Count 8.35 K/uL (4.8-10.8)
[2021-03-29 06:17] LABS: BUN Creatinine Ratio 18.7 (10-20); Calcium 8.1 mg/dl (8.5-10.1); Creatinine Clr Calc Pharmacy 98.2 ml/min; Est GFR (African American) 113.5 ml/min; Potassium 3.6 mmol/L (3.5-5.1)
[2021-03-29] MEDS: MULTIVITAMIN TAB PO SCH (07:30)
[2021-03-29] MEDS: ASPIRIN 81 MG ECTAB PO SCH ×2 (07:30→21:02)
[2021-03-29] MEDS: CeleBREX 200 MG CAP PO SCH ×2 (07:31→21:03)
[2021-03-29] MEDS: DOCUSATE SODIUM 100 MG CAP PO SCH ×2 (07:31→21:02)
[2021-03-29] MEDS: UMECLIDINIUM/VILANTEROL 62.5/25MCG 7 PUFFS/INHALER INH SCH (07:32)
[2021-03-29] MEDS: FLUTICASONE FUROATE 100MCG 14 PUFFS/INHALER INH SCH (07:32)
[2021-03-29] MEDS: metFORMIN HCL 500 MG TAB PO SCH ×2 (08:50→16:44)
[2021-03-29] MEDS: INSULIN ASPART 100 UNITS/ML 3 ML PEN SC SCH ×4 (08:51→21:12)
[2021-03-29] MEDS ORDERED: MULTIVITAMIN TAB PO SCH (09:00)
--- NOTE | 2021-03-29 09:47 | Orthopedic Progress Note ---
Date of Service March 29, 2021 Assessment & Plan (1) Primary osteoarthritis of left knee: Postop day 1 status post left total knee arthroplasty. PT/OT protocols. Weightbearing as tolerated. DVT prophylaxis-aspirin p.o. twice daily, SCDs. Pain management as written. DC planning patient is planning for outpatient PT upon discharge. Recheck drainage from Hemovac later today. Admission and Anticipated Discharge Date Admission Date: March 28, 2021 Subjective Postop day 1 Patient sitting up in bed awake and alert. No complaints this morning. States that she feels well. Pain is controlled. Denies shortness of breath, chest pain, lightheadedness. Physical Exam Physical Exam: Dressings are clean, dry, and intact. Calves are soft nontender. Neurovascular intact. Toes are mobile. She has good dorsiflexion and plantarflexion of the left foot. She had a total of 250 cc of drainage between the last shift and early this morning. Results & Data ([facility]) Vital Signs (Past 12 Hours) Vital Signs Temp Pulse Resp BP Pulse Ox 03/29/21 05:43 36.6 C 65 16 138/74 94 03/29/21 03:02 36.5 C 63 16 130/69 92 03/28/21 22:40 36.4 C L 59 L 16 111/68 92 Laboratory Results Laboratory Results WBC 8.35 K/uL (4.8-10.8) 03/29/21 05:43 RBC 3.77 M/uL (4.2-5.4) L 03/29/21 05:43 Hgb 11.3 g/dL (12.0-16.0) L 03/29/21 05:43 Hct 34.5 % (37-47) L 03/29/21 05:43 MCV 91.5 fL (80-100) 03/29/21 05:43 MCH 30.0 pg (25-34) 03/29/21 05:43 MCHC 32.8 g/dL (32-36) 03/29/21 05:43 RDW Std Deviation 46.5 fL (36.4-46.3) H 03/29/21 05:43 RDW Coeff of Raad 13.8 % (11.5-14.5) 03/29/21 05:43 Plt Count 193 K/uL (130-400) 03/29/21 05:43 MPV 10.0 fL (7.4-10.4) 03/29/21 05:43 Immature Gran % (Auto) 0.2 % 03/29/21 05:43 Neut % (Auto) 75.8 % 03/29/21 05:43 Lymph % (Auto) 11.5 % 03/29/21 05:43 Preble % (Auto) 8.9 % 03/29/21 05:43 Eos % (Auto) 3.2 % 03/29/21 05:43 Baso % (Auto) 0.4 % 03/29/21 05:43 Neut # (Auto) 6.33 K/uL (1.4-6.5) 03/29/21 05:43 Lymph # (Auto) 0.96 K/uL (1.2-3.4) L 03/29/21 05:43 Preble # (Auto) 0.74 K/uL (0.11-0.59) H 03/29/21 05:43 Eos # (Auto) 0.27 K/uL (0-0.5) 03/29/21 05:43 Baso # (Auto) 0.03 K/uL (0-0.2) 03/29/21 05:43 Immature Gran # (Auto) 0.02 K/uL (0.00-0.02) 03/29/21 05:43 Sodium 142 mmol/L (136-145) 03/29/21 05:43 Potassium 3.6 mmol/L (3.5-5.1) 03/29/21 05:43 Chloride 109 mmol/L (98-107) H 03/29/21 05:43 Carbon Dioxide 31 mmol/L (21-32) 03/29/21 05:43 Anion Gap 2.0 (3-11) L 03/29/21 05:43 BUN 11 mg/dl (7-18) 03/29/21 05:43 Creatinine 0.57 mg/dl (0.6-1.2) L 03/29/21 05:43 Est Cr Clr Drug Dosing 98.2 ml/min 03/29/21 05:43 Est GFR ( Amer) 113.5 ml/min 03/29/21 05:43 Est GFR (Non-Af Amer) 98.0 ml/min 03/29/21 05:43 BUN/Creatinine Ratio 18.7 (10-20) 03/29/21 05:43 Glucose 107 mg/dl (70-99) H 03/29/21 05:43 POC Glucose 112 mg/dl (70-99) H 03/29/21 08:10 Calcium 8.1 mg/dl (8.5-10.1) L 03/29/21 05:43 COVID-19 Eval Order Covid19 [facility] 03/28/21 07:52 Hepatitis C Ab Screen Neg (Neg) 03/28/21 08:03 SARS-CoV-2, RNA, NAAT NEGATIVE (NEGATIVE) 03/28/21 07:52 Impressions Knee X-Ray 03/28/21 12:56 XR knee LT 1 or 2V routine CLINICAL HISTORY: Surgical Post Op COMPARISON: None. DISCUSSION: There are postsurgical changes of a total left knee arthroplasty and patellar resurfacing. The femoral tibial components appear well seated. There are overlying skin carmine and surgical drains. There is gas within soft tissues consistent with recent surgery IMPRESSION: Postsurgical changes of a total left knee arthroplasty. ACT 112: Negative or not required by law. Electronically signed by: Prakash Eason M.D. 03/28/2021 1:22 PM
--- NOTE | 2021-03-29 14:31 | Communication Note ---
Date of Service: March 29, 2021 Discussed with Mark Cummings PA-C today. No ongoing medical concerns. Labs/vitals all stable and/or expected. Likely discharge tomorrow if Hemovac drain output goes down. Given medical stability, Hospital Medicine team will sign off. Please re-consult with any questions or concerns. Thank you for letting us assist in the care of this patient!
[2021-03-29] MEDS: LORATADINE 10 MG TAB PO SCH (21:02)
[2021-03-29] MEDS: ATORVASTATIN 40 MG TAB PO SCH (21:02)
[2021-03-29] MEDS: SENNA 8.6 MG TAB PO SCH (21:03)
[2021-03-30] MEDS: ROPIVACAINE 0.5% HCL/PF 150 MG, BUPIVACAINE 0.75% MPF 20 ML, EPINEPHrine 30MG/30ML (OR ... INSTIL SCH (03:37)
[2021-03-30] MEDS: ACETAMINOPHEN 500 MG TAB PO SCH (05:32)
[2021-03-30] MEDS: LEVOTHYROXINE SODIUM 50 MCG TABLET PO SCH (05:32)
[2021-03-30] MEDS: oxyCODONE HCL IR 5 MG TAB (IMMEDIATE RELEASE) PO PRN ×2 (05:32→09:37)
[2021-03-30] MEDS ORDERED: diphenhydrAMINE Capsule 25 MG CAP PO ONE (05:48)
--- NOTE | 2021-03-30 07:11 | Orthopedic Progress Note ---
Date of Service March 30, 2021 Assessment & Plan (1) Primary osteoarthritis of left knee: Postop day 2 status post left total knee arthroplasty. PT/OT protocols. Weightbearing as tolerated. DVT prophylaxis-aspirin p.o. twice daily, SCDs. Pain management as written. DC planning patient is planning for outpatient PT upon discharge. Plan on discharge today Admission and Anticipated Discharge Date Admission Date: March 28, 2021 Subjective Postop day 2 Patient sitting up in bed awake and alert. No complaints this morning. Pain is controlled. Denies shortness of breath, chest pain, lightheadedness, fever, chills Review of Systems Review of Systems: All systems reviewed & are unremarkable except as noted in HPI & below Physical Exam Physical Exam: Left knee: Dressing is c/d/i, mild drainage in window of ELOISA. Dressing to drain site c/d/i. No calf tenderness. Toes mobile with good dorsiflexion. Distally n/v status and sensation intact. Constitutional: well developed and well nourished; no acute distress Results & Data ([facility]) Vital Signs (Past 12 Hours) Vital Signs Temp Pulse Resp BP Pulse Ox 03/30/21 06:49 36.8 C 77 16 161/77 H 94 03/29/21 22:45 37 C 62 16 126/76 95
[2021-03-30] MEDS: FLUTICASONE FUROATE 100MCG 14 PUFFS/INHALER INH SCH (08:16)
[2021-03-30] MEDS: UMECLIDINIUM/VILANTEROL 62.5/25MCG 7 PUFFS/INHALER INH SCH (08:16)
[2021-03-30] MEDS: MULTIVITAMIN TAB PO SCH (08:16)
[2021-03-30] MEDS: DOCUSATE SODIUM 100 MG CAP PO SCH (08:17)
[2021-03-30] MEDS: metFORMIN HCL 500 MG TAB PO SCH (08:17)
[2021-03-30] MEDS: ASPIRIN 81 MG ECTAB PO SCH (08:17)
[2021-03-30] MEDS: CeleBREX 200 MG CAP PO SCH (08:17)
[2021-03-30] MEDS: INSULIN ASPART 100 UNITS/ML 3 ML PEN SC SCH (08:19)
--- NOTE | 2021-03-30 16:55 | Discharge Summary ---
Date of Service March 30, 2021 Admission HPI Per Admitting Provider 65 year old female with PMHx significant for carotid stenosis, high cholesterol, hypothyroid, DM2, asthma presents with ongoing left knee pain. Pain interfering with her ability to carry out daily activiteis. She has failed conservative measures including NSAIDs, Tylenol, home exercises, knee sleeve. She has severe endstage osteoarthritis. She would like to proced with surgical intervention. Patient denies headaches, sweats, fevers, chills, double vision, blurred vision, cough, sore throat, dysphagia, chest pain, sob, wheezing, n/v/d/c, numbness, tingling, fatigue, urinary symptoms, mood disorders. ROS positive for left knee pain and stiffness. Admission Exam Per Admitting Provider Constitutional: well developed and well nourished; no acute distress Eyes: PERRL, conjunctivae normal, anicteric sclerae ENMT: external ear and nose normal, oropharynx normal Neck: trachea midline, no thyromegaly Respiratory: normal respiratory effort, lungs clear to auscultation Cardiovascular: RRR, no murmur, no edema Musculoskeletal: Left knee: ROM 15-80 degrees, crepitation. Varus alignment. Medial joint line tenderness. Negative valgus and varus stress. Skin: no rashes, warm and dry Neurologic: patellar DTR's 2+ bilat, sensation intact Psychiatric: A+Ox3, euthymic affect Principal Diagnosis Left knee osteoarthritis Discharge Exam Constitutional well developed and well nourished; no acute distress Eyes PERRL, conjunctivae normal, anicteric sclerae ENMT external ear and nose normal, oropharynx normal Neck trachea midline, no thyromegaly Respiratory normal respiratory effort, lungs clear to auscultation Cardiovascular RRR, no murmur, no edema Skin no rashes, warm and dry Neurologic patellar DTR's 2+ bilat, sensation intact Psychiatric A+Ox3, euthymic affect Discharge Data Allergies Allergy/AdvReac Type Severity Reaction Status Date / Time Penicillins Allergy Severe Angioedema Verified 03/09/21 07:54 Consultations 03/23/21 14:03 Consult Hospitalist Routine Procedures Performed Operation Date: 03/28/21 09:50 Actual Procedures p Left Total Knee Arthroplasty(Left) - Denilson Berrios MD Ordered Studies 03/28/21 05:00 US - OR guided needle placemen Routine Hospital Course (1) Primary osteoarthritis of left knee: Patient presented for same day admission following left total knee arthroplasty on 03/28/21. She tolerated procedure well. The Patient had an uneventful hospital course. Post-operatively, her activity was progressed and well tolerated. They participated in PT with ambulation distance of 200 feet. ROM of operative knee reached 77 degrees. Labs remained stable- lowest hemoglobin recorded: 11.[address] Poncho Cordova of medical service was consulted for medical management during admission. Pain controlled on oral medications. Please refer to daily progress notes and PT notes for complete details. After exam on 03/30/21, patient was felt to be stable for discharge home with plans on attending outpatient PT. Patient will f/u in the office in about 2 weeks for further evaluation including x-rays and incision check, sooner if having any issues or concerns. Postop day 2 status post left total knee arthroplasty. PT/OT protocols. Weightbearing as tolerated. DVT prophylaxis-aspirin p.o. twice daily, SCDs. Pain management as written. DC planning patient is planning for outpatient PT upon discharge. Plan on discharge today Lab Results 03/28/21 03/28/21 03/28/21 Range/Units 07:52 07:52 08:02 WBC (4.8-10.8) K/uL RBC (4.2-5.4) M/uL Hgb (12.0-16.0) g/dL Hct (37-47) % MCV (80-100) fL MCH (25-34) pg MCHC (32-36) g/dL RDW Std Deviation (36.4-46.3) fL RDW Coeff of Raad (11.5-14.5) % Plt Count (130-400) K/uL MPV (7.4-10.4) fL Immature Gran % (Auto) % Neut % (Auto) % Lymph % (Auto) % [place] % (Auto) % Eos % (Auto) % Baso % (Auto) % Neut # (Auto) (1.4-6.5) K/uL Lymph # (Auto) (1.2-3.4) K/uL [place] # (Auto) (0.11-0.59) K/uL Eos # (Auto) (0-0.5) K/uL Baso # (Auto) (0-0.2) K/uL Immature Gran # (Auto) (0.00-0.02) K/uL Sodium (136-145) mmol/L Potassium (3.5-5.1) mmol/L Chloride (98-107) mmol/L Carbon Dioxide (21-32) mmol/L Anion Gap (3-11) BUN (7-18) mg/dl Creatinine (0.6-1.2) mg/dl Est Cr Clr Drug Dosing ml/min Est GFR ( Amer) ml/min Est GFR (Non-Af Amer) ml/min BUN/Creatinine Ratio (10-20) Glucose (70-99) mg/dl POC Glucose 124 H (70-99) mg/dl Calcium (8.5-10.1) mg/dl COVID-19 Eval [email or web address] C Ab Screen (Neg) SARS-CoV-2, RNA, NAAT NEGATIVE (NEGATIVE) 03/28/21 03/28/21 03/28/21 Range/Units 08:03 12:54 17:18 WBC (4.8-10.8) K/uL RBC (4.2-5.4) M/uL Hgb (12.0-16.0) g/dL Hct (37-47) % MCV (80-100) fL MCH (25-34) pg MCHC (32-36) g/dL RDW Std Deviation (36.4-46.3) fL RDW Coeff of Raad (11.5-14.5) % Plt Count (130-400) K/uL MPV (7.4-10.4) fL Immature Gran % (Auto) % Neut % (Auto) % Lymph % (Auto) % [place] % (Auto) % Eos % (Auto) % Baso % (Auto) % Neut # (Auto) (1.4-6.5) K/uL Lymph # (Auto) (1.2-3.4) K/uL [place] # (Auto) (0.11-0.59) K/uL Eos # (Auto) (0-0.5) K/uL Baso # (Auto) (0-0.2) K/uL Immature Gran # (Auto) (0.00-0.02) K/uL Sodium (136-145) mmol/L Potassium (3.5-5.1) mmol/L Chloride (98-107) mmol/L Carbon Dioxide (21-32) mmol/L Anion Gap (3-11) BUN (7-18) mg/dl Creatinine (0.6-1.2) mg/dl Est Cr Clr Drug Dosing ml/min Est GFR ( Amer) ml/min Est GFR (Non-Af Amer) ml/min BUN/Creatinine Ratio (10-20) Glucose (70-99) mg/dl POC Glucose 104 H 134 H (70-99) mg/dl Calcium (8.5-10.1) mg/dl COVID-19 Eval Order Hepatitis C Ab Screen Neg (Neg) SARS-CoV-2, RNA, NAAT (NEGATIVE) 03/28/21 03/29/21 03/29/21 Range/Units 20:38 05:43 05:43 WBC 8.35 (4.8-10.8) K/uL RBC 3.77 L (4.2-5.4) M/uL Hgb 11.3 L (12.0-16.0) g/dL Hct 34.5 L (37-47) % MCV 91.5 (80-100) fL MCH 30.0 (25-34) pg MCHC 32.8 (32-36) g/dL RDW Std Deviation 46.5 H (36.4-46.3) fL RDW Coeff of Raad 13.8 (11.5-14.5) % Plt Count 193 (130-400) K/uL MPV 10.0 (7.4-10.4) fL Immature Gran % (Auto) 0.2 % Neut % (Auto) 75.8 % Lymph % (Auto) 11.5 % [place] % (Auto) 8.9 % Eos % (Auto) 3.2 % Baso % (Auto) 0.4 % Neut # (Auto) 6.33 (1.4-6.5) K/uL Lymph # (Auto) 0.96 L (1.2-3.4) K/uL [place] # (Auto) 0.74 H (0.11-0.59) K/uL Eos # (Auto) 0.27 (0-0.5) K/uL Baso # (Auto) 0.03 (0-0.2) K/uL Immature Gran # (Auto) 0.02 (0.00-0.02) K/uL Sodium 142 (136-145) mmol/L Potassium 3.6 (3.5-5.1) mmol/L Chloride 109 H (98-107) mmol/L Carbon Dioxide 31 (21-32) mmol/L Anion Gap 2.0 L (3-11) BUN 11 (7-18) mg/dl Creatinine 0.57 L (0.6-1.2) mg/dl Est Cr Clr Drug Dosing 98.2 ml/min Est GFR ( Amer) 113.5 ml/min Est GFR (Non-Af Amer) 98.0 ml/min BUN/Creatinine Ratio 18.7 (10-20) Glucose 107 H (70-99) mg/dl POC Glucose 107 H (70-99) mg/dl Calcium 8.1 L (8.5-10.1) mg/dl COVID-19 Eval Order Hepatitis C Ab Screen (Neg) SARS-CoV-2, RNA, NAAT (NEGATIVE) 03/29/21 03/29/21 03/29/21 Range/Units 08:10 12:23 17:14 WBC (4.8-10.8) K/uL RBC (4.2-5.4) M/uL Hgb (12.0-16.0) g/dL Hct (37-47) % MCV (80-100) fL MCH (25-34) pg MCHC (32-36) g/dL RDW Std Deviation (36.4-46.3) fL RDW Coeff of Raad (11.5-14.5) % Plt Count (130-400) K/uL MPV (7.4-10.4) fL Immature Gran % (Auto) % Neut % (Auto) % Lymph % (Auto) % [place] % (Auto) % Eos % (Auto) % Baso % (Auto) % Neut # (Auto) (1.4-6.5) K/uL Lymph # (Auto) (1.2-3.4) K/uL [place] # (Auto) (0.11-0.59) K/uL Eos # (Auto) (0-0.5) K/uL Baso # (Auto) (0-0.2) K/uL Immature Gran # (Auto) (0.00-0.02) K/uL Sodium (136-145) mmol/L Potassium (3.5-5.1) mmol/L Chloride (98-107) mmol/L Carbon Dioxide (21-32) mmol/L Anion Gap (3-11) BUN (7-18) mg/dl Creatinine (0.6-1.2) mg/dl Est Cr Clr Drug Dosing ml/min Est GFR ( Amer) ml/min Est GFR (Non-Af Amer) ml/min BUN/Creatinine Ratio (10-20) Glucose (70-99) mg/dl POC Glucose 112 H 115 H 120 H (70-99) mg/dl Calcium (8.5-10.1) mg/dl COVID-19 Eval Order Hepatitis C Ab Screen (Neg) SARS-CoV-2, RNA, NAAT (NEGATIVE) 03/29/21 03/30/21 03/30/21 Range/Units 20:41 06:46 08:00 WBC (4.8-10.8) K/uL RBC (4.2-5.4) M/uL Hgb (12.0-16.0) g/dL Hct (37-47) % MCV (80-100) fL MCH (25-34) pg MCHC (32-36) g/dL RDW Std Deviation (36.4-46.3) fL RDW Coeff of Raad (11.5-14.5) % Plt Count (130-400) K/uL MPV (7.4-10.4) fL Immature Gran % (Auto) % Neut % (Auto) % Lymph % (Auto) % [place] % (Auto) % Eos % (Auto) % Baso % (Auto) % Neut # (Auto) (1.4-6.5) K/uL Lymph # (Auto) (1.2-3.4) K/uL [place] # (Auto) (0.11-0.59) K/uL Eos # (Auto) (0-0.5) K/uL Baso # (Auto) (0-0.2) K/uL Immature Gran # (Auto) (0.00-0.02) K/uL Sodium (136-145) mmol/L Potassium (3.5-5.1) mmol/L Chloride (98-107) mmol/L Carbon Dioxide (21-32) mmol/L Anion Gap (3-11) BUN (7-18) mg/dl Creatinine (0.6-1.2) mg/dl Est Cr Clr Drug Dosing ml/min Est GFR ( Amer) ml/min Est GFR (Non-Af Amer) ml/min BUN/Creatinine Ratio (10-20) Glucose (70-99) mg/dl POC Glucose 132 H 128 H 173 H (70-99) mg/dl Calcium (8.5-10.1) mg/dl COVID-19 Eval Order Hepatitis C Ab Screen (Neg) SARS-CoV-2, RNA, NAAT (NEGATIVE) Total Time Total Time Spent Total Time Spent (In Minutes): 20 Discharge Plan Discharge Items Patient Disposition: Home - Self-Care Reason For Visit: Osteoarthritis, Left Knee Discharge Diagnosis: Osteoarthritis Left Knee Activity: Per Instructions section Weightbearing: Left weightbearing Weightbearing Comment: as tolerated with walker Non-emergency contact: Surgeon Call non-emergency contact if: your pain is not controlled, your pain is worsening, you have a fever, your temperature is above 101.5, your wound has increased redness and your wound has increased drainage Follow-up/Referrals: Ivanna Sharif PA-C [Primary Care Provider] - Diet: Carb Consistent or DM2 Addtl Attending Provider Instructions: ACTIVITY RECOMMENDATIONS: SELF CARE INSTRUCTIONS AFTER TOTAL KNEE REPLACEMENT A. You may need to continue a physical therapy program after discharge from the hospital. There are several options available to you. Your doctor will assist you in selecting the best one for you. 1. An out-patient facility 2 to 3 times a week for therapy or home therapy. 2. Continue working on all exercises taught to you in the hospital. Your goals should be to increase bending of your knee to 90 degrees and beyond and to fully straighten your knee. B. You may progress at your own pace from walking with a walker or crutches to a cane; then to no assistive devices. C. Make walking a part of your daily routine. Be up as much as comfortable with rest periods throughout the day. Rest with leg elevation is very important. Use the ice wrap frequently for the first 3-4 weeks. D. There are no restrictions on activities. You may ride in a car, shop, participate in commercial roofer and all social activities. E. Wear the long elastic stockings (RAH hose) 20 hours a day for 2 weeks after surgery. They can be removed several times a day for laundering and for a bath. F. You may shower, no tub baths until cleared by your doctor. SPECIAL CARE INSTRUCTIONS: VERY IMPORTANT TO READ AND REVIEW A. There are a few signs you need to watch for after you are home. Call [facility] if you notice any of the followin. Increased severe knee pain. Some pain is expected especially when you exercise. 2. Increased swelling in your leg or knee; pain or swelling of the calf muscle in either lower leg. 3. Any fluid drainage from the incision. 4. Shortness of breath or chest pain. B. Please call [facility] at if you have any concerns or questions about your operation or recovery. The doctor or his nurse will return your call promptly. C. You must take antibiotics before dental work, bladder, bowel or other surgery. Your doctor will provide you with a permanent care to carry describing this precaution. IMPORTANT: * REMEMBER TO TAKE ASPIRIN, 81 MG, TWICE DAILY FOR 4 WEEKS UNLESS OTHERWISE DIRECTED. THIS IS YOUR BLOOD THINNER. * HIGH RISK PATIENTS MAY BE PRESCRIBED A STRONGER BLOOD THINNER. THIS WILL BE PROVIDED AT DISCHARGE. * CALL IF INCREASED PAIN, REDNESS, DRAINAGE OR FEVER GREATER THAT 101. * WEAR RAH HOSE 20 HOURS PER DAY FOR 2 WEEKS. This is a large suction dressing covering your incision. This will help pull any excess drainage from the wound and allow your incision to heal properly. You may shower with this if you can keep the unit outside of the shower. If any bleeding or leakage is noted please call your doctor's office. This will remain on your incision for 7 days and then should be removed. This can be done yourself or by the home nursing staff if applicable. The entire unit is disposable once removed. Once removed, keep incision clean and dry. If redness or drainage is noted, please call your surgeon. IF INCISION IS LEAKING THROUGH DRESSING, CALL THE OFFICE . FOLLOW UP VISIT: If appointment is not already scheduled: Please call [facility] to make a follow-up appointment for 2 weeks after your surgery at . Stand-Alone Forms: [facility], Opioid Pain Management, Smoking Cessation Medications and DC Order Prescriptions: New aspirin 81 mg Tablet,Delayed Release (Dr/Ec) 81 mg PO BID 30 Days Qty: 60 RF: 0 acetaminophen 500 mg Tablet 1,000 mg PO Q8 14 Days Qty: 84 RF: 0 celecoxib [Celebrex] 200 mg Capsule 200 mg PO BID Qty: 60 RF: 0 oxycodone 5 mg Tablet 5 - 10 mg PO .Q4h-6h MDD 6 PRN (Reason: pain) Qty: 30 RF: 0 Continued metformin 500 mg tablet extended release 24hr 500 mg PO BID Qty: 180 RF: 1 levothyroxine 50 mcg tablet See Rx Instructions .ROUTE .COMPLEX Qty: 90 RF: 1 [id number] 100-62.5-25 mcg blister with device 1 inh INH QAM RF: 0 fluticasone propionate 50 mcg/actuation spray,suspension 1 spray INTNAS DAILY PRN (Reason: Nasal Congestion) RF: 0 multivitamin [Daily Multi-Vitamin] Tablet 1 tab PO QAM RF: 0 atorvastatin 40 mg tablet 40 mg PO HS RF: 0 loratadine [Claritin] 10 mg tablet 10 mg PO HS RF: 0 Discontinued celecoxib 100 mg capsule See Rx Instructions .ROUTE .COMPLEX Qty: 90 RF: 1 Discharge Orders: Discharge Order (Routine); Ordered 03/30/21 Ordered By: Amarjit River/Other Patient Handouts: Total Knee Replacement, Understanding Knee Replacement, After Knee Replacement: Back at Home, Knee Replace First Month, Home Safety After Joint Surgery Admission Data Admit Date/Time: 03/28/21 12:57 Attending Provider: Denilson Berrios Admit Provider: Denilson Berrios Primary Care Provider: Ivanna Sharif Other Providers: Poncho Cordova. Other Interventions: Discharge Summary Assessment (RN) Last Done: 03/30/21 09:27
== END 2021-03-30 10:32 | disposition home or self-care (01) ==
LOC: ASU 07:29 → PACUINP 07:29 → 3E 16:53